=== PATIENT | male | born 1960 | race Two or more races ===

== ENCOUNTER 2018-12-13 01:11 | Emergency (ER) | payer SELFPAY ==
--- NOTE | 2018-12-13 01:14 | NUR ---
NOTIFIED BY ADMITTING THAT PATIENT NO LONGER WANTED TO BE CHECKED INTO ER AND LEFT ER.
== END 2018-12-13 01:18 | disposition left against medical advice (07) ==
LOC: ER 01:17
DX: Z53.21 Procedure and treatment not carried out due to patient leaving prior to being seen by health care provider (principal)